=== PATIENT | male | born 1995 | race Caucasian/White ===

== ENCOUNTER 2016-08-24 22:59 | Emergency (ER) | payer OTHER ==
--- NOTE | 2016-08-24 23:42 | EDPHY ---
H & P Time Seen by Provider: 08/24/16 23:12 HPI/ROS: CHIEF COMPLAINT: Left pretibial laceration HISTORY OF PRESENT ILLNESS: 21-year-old male with up-to-date tetanus sustained accidental pretibial laceration when his foot slipped off the pedal impacting this region. Occurred earlier this afternoon. He is able to bear weight. No discoloration. No crepitus. PHYSICAL EXAM (Prior to examination, patient consented to physical exam, hands were washed and my usual and customary physical exam procedures followed) 1) GENERAL: Well-developed, well-nourished, alert and oriented. Appears to be in no acute distress. 2) HEAD: Normocephalic 3) HEENT: sclera anicteric 4) LUNGS: Breathing comfortably. 5) SKIN: Left pretibial v-shaped laceration measuring 2.5 cm with viable tissue and a flap component 6) MUSCULOSKELETAL: compartments are soft. No underlying osseous fragments are components visualized. Distal DP PT pulses present and brisk with brisk capillary refill color normal temperature normal. Dorsiflexion plantar flexion intact with no deficits 7) NEUROLOGIC: Full sensation. Smoking Status: Never smoked Constitutional: Initial Vital Signs Temperature (C) 36.7 C 08/24/16 23:07 Heart Rate 77 08/24/16 23:07 Respiratory Rate 16 08/24/16 23:07 Blood Pressure 133/77 H 08/24/16 23:07 O2 Sat (%) 93 08/24/16 23:07 O2 Delivery Mode Room Air Allergies/Adverse Reactions: No Known Allergies Allergy (Verified 08/24/16 23:10) Home Medications: Medication Instructions Recorded NK [No Known Home Meds] 08/24/16 MDM/Departure - [facility] ED Course/Re-evaluation: Re-evaluation with serial exams. Compartments soft. Neurovascularly intact distally. Usual and customary wound precautions and instructions provided. Care and management in consultation with secondary supervising physician Dr Kirk . - Depart Disposition: Home, Routine, Self-Care Clinical Impression: Left pretibial laceration Condition: Good Instructions: Laceration (ED), Care For Your Stitches (ED) Additional Instructions: Return to the ER if you develop redness, swelling, discharge, warmth to the wound, red streaks going up your leg, or any other symptoms that concern you. Referrals: Return, to the ER in 14 days for suture removal [Other] - As per Instructions
[2016-08-25 00:25] VITALS: BP 116/66; PULSE 67; RESP 20; TEMP 97.7; O2SAT 94
== END 2016-08-25 00:25 | disposition home or self-care (01) ==
PROC: 0HQLXZZ Repair Left Lower Leg Skin, External Approach (ICD-10-PCS; principal; 2016-08-24)
DX: S81.812A Laceration without foreign body, left lower leg, initial encounter (principal); V18.0XXA Pedal cycle driver injured in noncollision transport accident in nontraffic accident, initial encounter